=== PATIENT | female | born 1995 | race Caucasian/White ===

== ENCOUNTER 2017-01-10 03:20 | Emergency (ER) | payer OTHER ==
[~2017-01-10] VITALS: Ht 165.1 cm; Wt 63.5 kg
[2017-01-10 03:57] LABS: Basophils # (auto) 0 uL; Basophils % (auto) 0.5 % (0.0-2.0); Eosinophils # (auto) 0 uL; Eosinophils % (auto) 0.3 % (0.0-7.0); Hematocrit 40.2 % (36.0-46.0); Hemoglobin 13.5 g/dL (12.2-16.2); Lymphocytes # (auto) 3.3 uL; Lymphocytes % (auto) 41.6 % (10.0-50.0); Mean Corpuscular Hemoglobin 28.8 pg (28.0-32.0); Mean Corpuscular Hgb Conc. 33.6 g/dL (32.0-36.0); Mean Corpuscular Volume 85.8 fL (80.0-100.0); Mean Platelet Volume 8.6 fL (7.4-10.4); Monocytes # (auto) 0.5 uL; Monocytes % (auto) 6.5 % (0.0-12.0); Neutrophils # (auto) 4.1 uL; Neutrophils % (auto) 51.1 % (37.0-80.0); Platelet Count (auto) 323 10^3/uL (140-450); Red Cell Distribution Width 14.1 % (11.6-16.0)
[2017-01-10 04:08] LABS: Albumin 3.6 g/dL (3.4-5.0); BUN/Creatinine Ratio 8.5; Calcium 8.6 mg/dL (8.5-10.1); Magnesium 1.8 mg/dL (1.6-2.6); Potassium 3.3 mmol/L (3.5-5.1)
[2017-01-10 04:11] LABS: Bilirubin, Total 0.1 mg/dL (0.2-1.0); Total Protein 8.4 g/dL (6.4-8.2)
[2017-01-10 04:20] LABS: Salicylate < 1.7 mg/dL (2.8-20.0)
[2017-01-10 04:21] LABS: Acetaminophen < 2.0 ug/mL (10-30)
[2017-01-10] MEDS ORDERED: THIAMINE HCL 100 MG/ML 2ML VIAL ONE (04:49)
[2017-01-10 07:47] LABS: Urine Bilirubin Negative (Negative); Urine Blood Negative /uL (Negative); Urine Color Yellow (Yellow); Urine Glucose Normal (Normal); Urine Mucus FEW (None Seen); Urine Nitrite Negative (Negative); Urine RBC 1 /hpf (0 - 4); Urine Squamous Epithelial Cell FEW /hpf (<5); Urine Urobilinogen Normal (Negative); Urine pH 6.5 (5.0-8.0)
[2017-01-10 07:49] LABS: Urine Ketone 1+ (Negative)
[2017-01-10 08:01] VITALS: BP 128/54
[2017-01-10] MEDS ORDERED: THIAMINE INJ 100 MG, MULTIPLE VITAMIN 10 ML, FOLIC ACID 1 MG, MAGNESIUM SULF SDV 50% 8 ... IV SCH ×5 (12:00)
== END 2017-01-10 09:19 | disposition home or self-care (01) ==
LOC: ER 03:30
DX: K29.20 Alcoholic gastritis without bleeding (principal); F12.10 Cannabis abuse, uncomplicated; F10.120 Alcohol abuse with intoxication, uncomplicated; E87.6 Hypokalemia; F14.10 Cocaine abuse, uncomplicated
CPT/HCPCS: 36415; 80053; 80307; 80320; 80329; 81001; 83735; 84443; 84484; 84702; 85025; 93005; 96365; 96366; 99285; J3411; J3475; J7030

== ENCOUNTER 2025-03-30 15:21 | Outpatient (CLI) | payer BC | END 2025-03-30 17:00 | disposition home or self-care (01) | LOC: LAB 15:21 | DX: Z33.1 Pregnant state, incidental (principal) | CPT/HCPCS: 36415; 84702 ==